=== PATIENT | female | born 1995 | race African-American/Black ===

== ENCOUNTER 2018-01-03 16:24 | Emergency (ER) | payer SELFPAY ==
[2018-01-03 18:58] LABS: BASOPHILS % 0.2 (0.0-1.5); MEAN CORPUSCULAR HEMOGLOBIN 28.2 pg (28.0-34.0); MEAN CORPUSCULAR VOLUME 90.1 fl (80.0-100.0); MONOCYTES % 3.9 % (0.0-11.0); NEUTROPHILS # 5.1 # k/uL (1.4-7.7)
[2018-01-03 19:11] LABS: eGFR (African) > 60; eGFR (Non-African) > 60
--- NOTE | 2018-01-03 19:19 | ED Physician Documentation ---
General Adult - HISTORIAN Historian: patient - HPI Stated Complaint: syncopal episode Chief Complaint: Near Syncope Additional Information: 22-year-old -[place]ish female who well at work today started getting lightheaded and dizzy. On admission to the emergency room patient was lethargic and not responding well. Staff at her place of employment stated they were having a hard time getting the patient to respond. At one time it looked like her eyes rolled back in the head with no specific seizure activity was noted. Patient does have a history of having seizures when she was a child and then again after she had an epidural for a delivery. Patient is not had any specific workup for a seizure disorder done. Patient reported that she did have an yesterday. Patient has been having some depression problems and went to psychiatric hospital for admission for her depression. However no beds were available and patient was sent home. Patient denies that she is suicidal at this time. Patient has been started on Zoloft and stated she started having her symptoms after she took the Zoloft this afternoon. At the patient remained in the ED she did become more awake and alert. Patient denied any chest pain chest pressure palpitations or skip beats. Patient is not had included cardiac arrhythmia. Patient denies any hypoglycemic episodes.. Onset: minutes (45 minutes [employer]) Timing: still present - ROS CONST: no problems. denies: fever, chills MS/SKIN/LYMPH: none - PAST HX Past History: other (seizure) Other History: none Surgeries/Procedures: other (recent ) Immunizations: UTD - SOCIAL HX Drug Use: none - FAMILY HX Family History: No - VITAL SIGNS Vital Signs: Vital Signs Temp Pulse Resp BP Pulse Ox 98.4 F 75 16 130/77 100 01/03/18 18:19 01/03/18 18:19 01/03/18 18:19 01/03/18 18:19 01/03/18 18:19 - REVIEWED ASSESSMENTS Nursing Assessment Reviewed: Yes Vitals Reviewed: Yes <Dharmesh Leiva - Last Filed: 01/03/18 19:15> - HISTORIAN Historian: patient - HPI Timing: still present Further Comments: yes (she reports last Wed she and her friend took a home test and despite her Mireana her test was positive and she took three more tests and they were positive. She states that last week after finding this positive test she went "to a lady in [place] who gave me medicine to drink and I went to sleep and when I woke up she said she took care of my " . In discussion I did confirm she went for an and she felt she had one done that day. She states she did not start to bleed so she went to "another lady in [place] who gave me some pills and I took them yesterday" She is worried due to still not bleeding. She has no cramping. She has nausea. She did start Zoloft yesterday and this started about 1 hour after taking the Zoloft. She states she got to work at 330 pm and felt fine about half an hour after she did feel "weird and light headed" she states she was taken to the "main office at work and I dont remember anything until here") - SOCIAL HX Smoking History: non-smoker - VITAL SIGNS Vital Signs: Vital Signs Temp Pulse Resp BP Pulse Ox 98.4 F 75 16 130/77 100 01/03/18 18:19 01/03/18 18:19 01/03/18 18:19 01/03/18 18:19 01/03/18 18:19 <Dian Chacon - Last Filed: 01/04/18 00:27> - PAST HX Allergies/Adverse Reactions: Allergies Allergy/AdvReac Type Severity Reaction Status Date / Time No Allergy Information Allergy Unverified 01/03/18 18:59 Available Home Medications: Ambulatory Orders Medication Instructions Recorded Sertraline HCl [Zoloft] 50 mg PO DAILY 01/03/18 Progress - Progress Progress: 2043: Nausea is improved DG <Dian Chacon - Last Filed: 01/04/18 00:27> ED Results Lab/Radiology - Lab Results Lab Results: Lab Results 01/03/18 01/03/18 18:50 18:50 WBC 7.20 K/ul K/ul (4.00-12.00) RBC 4.47 M/ul M/ul (3.90-5.20) Hgb 12.6 g/dL g/dL (12.0-16.0) Hct 40.2 % % (34.5-46.5) MCV 90.1 fl fl (80.0-100.0) MCH 28.2 pg pg (28.0-34.0) MCHC 31.3 g/dL g/dL (30.0-36.0) RDW 13.1 % % (11.3-14.3) Plt Count 213 K/mm3 K/mm3 (130-400) Neut % (Auto) 71.0 % % (39.0-79.0) Lymph % (Auto) 21.5 % % (16.0-50.0) [place] % (Auto) 3.9 % % (0.0-11.0) Eos % (Auto) 2.0 % % (0.0-6.8) Baso % (Auto) 0.2 (0.0-1.5) Neut # (Auto) 5.1 # k/uL # k/uL (1.4-7.7) Lymph # (Auto) 1.5 # k/uL # k/uL (0.6-4.0) [place] # (Auto) 0.3 # k/uL # k/uL (0.0-0.9) Eos # (Auto) 0.1 # k/uL # k/uL (0.0-0.6) Baso # (Auto) 0.0 # k/uL # k/uL (0.0-0.5) Reactive Lymphs % 1.4 % % (0.0-5.0) Reactive Lymphs # 0.1 # k/uL # k/uL (0.0-0.8) Sodium 138 mmol/L mmol/L (136-145) Potassium 3.6 mmol/L mmol/L (3.5-5.1) Chloride 107 mmol/L mmol/L (98-107) Carbon Dioxide 21 mmol/L L mmol/L (22-30) BUN 11 mg/dL mg/dL (7-17) Creatinine 0.60 mg/dL mg/dL (0.52-1.04) Estimated Creat Clear 224 Est GFR ( Amer) > 60 (60 - ) Est GFR (Non-Af Amer) > 60 (60 - ) Glucose 92 mg/dL mg/dL (74-106) Calcium 8.8 mg/dL mg/dL (8.4-10.2) Total Bilirubin 0.2 mg/dL mg/dL (0.2-1.3) AST 14 U/L L U/L (15-46) ALT 19 U/L U/L (13-69) Alkaline Phosphatase 117 U/L U/L (38-126) Total Protein 7.7 g/dL g/dL (6.3-8.2) Albumin 4.1 g/dL g/dL (3.5-5.0) - Orders Orders: ED Orders Category Date Time Status Place IV Lock 1T Care 01/03/18 18:[address] BRAIN W/O CONTRAST Stat Exams 01/03/18 Ordered CBC/PLATELET/DIFF Routine Lab 01/03/18 Ordered CBC/PLATELET/DIFF Routine Lab 01/03/18 18:50 Completed CMP Routine Lab 01/03/18 18:50 Completed URINALYSIS Routine Lab 01/03/18 Uncollected EKG WITH COMPARISON Routine Ther 01/03/18 18:49 Ordered <Dharmesh Leiva - Last Filed: 01/03/18 19:15> - Lab Results Lab Results: Lab Results 01/03/18 01/03/18 18:50 18:50 WBC 7.20 K/ul K/ul (4.00-12.00) RBC 4.47 M/ul M/ul (3.90-5.20) Hgb 12.6 g/dL g/dL (12.0-16.0) Hct 40.2 % % (34.5-46.5) MCV 90.1 fl fl (80.0-100.0) MCH 28.2 pg pg (28.0-34.0) MCHC 31.3 g/dL g/dL (30.0-36.0) RDW 13.1 % % (11.3-14.3) Plt Count 213 K/mm3 K/mm3 (130-400) Neut % (Auto) 71.0 % % (39.0-79.0) Lymph % (Auto) 21.5 % % (16.0-50.0) [place] % (Auto) 3.9 % % (0.0-11.0) Eos % (Auto) 2.0 % % (0.0-6.8) Baso % (Auto) 0.2 (0.0-1.5) Neut # (Auto) 5.1 # k/uL # k/uL (1.4-7.7) Lymph # (Auto) 1.5 # k/uL # k/uL (0.6-4.0) [place] # (Auto) 0.3 # k/uL # k/uL (0.0-0.9) Eos # (Auto) 0.1 # k/uL # k/uL (0.0-0.6) Baso # (Auto) 0.0 # k/uL # k/uL (0.0-0.5) Reactive Lymphs % 1.4 % % (0.0-5.0) Reactive Lymphs # 0.1 # k/uL # k/uL (0.0-0.8) Sodium 138 mmol/L mmol/L (136-145) Potassium 3.6 mmol/L mmol/L (3.5-5.1) Chloride 107 mmol/L mmol/L (98-107) Carbon Dioxide 21 mmol/L L mmol/L (22-30) BUN 11 mg/dL mg/dL (7-17) Creatinine 0.60 mg/dL mg/dL (0.52-1.04) Estimated Creat Clear 224 Est GFR ( Amer) > 60 (60 - ) Est GFR (Non-Af Amer) > 60 (60 - ) Glucose 92 mg/dL mg/dL (74-106) Calcium 8.8 mg/dL mg/dL (8.4-10.2) Total Bilirubin 0.2 mg/dL mg/dL (0.2-1.3) AST 14 U/L L U/L (15-46) ALT 19 U/L U/L (13-69) Alkaline Phosphatase 117 U/L U/L (38-126) Total Protein 7.7 g/dL g/dL (6.3-8.2) Albumin 4.1 g/dL g/dL (3.5-5.0) - Radiology Radiology Impressions: CT brain noncontrast Date of study: January 03, 2018. CLINICAL HISTORY: SYNCOPAL EPISODE, NAUSEA, DIZZINESS (Hx) / ITS.REASON syncopal TECHNIQUE: 5 mm contiguous axial images of the brain, noncontrast. FINDINGS: There is no evidence of intracranial mass effect, hemorrhage, or acute hydrocephalus. The lateral ventricles are symmetrical and the 4th ventricle is midline without shift. No acute brain parenchymal changes or extra-axial fluid collections are identified. The posterior fossa contents are within normal limits. The calvarium is intact. The visualized sinuses and mastoid air cells are clear. IMPRESSION: No acute intracranial process. Electronically signed on January 03, 2018 8:36:02 PM CDT by: Viridiana Guzmán - Orders Orders: ED Orders Category Date Time Status Place IV Lock 1T Care 01/03/18 18:[address] BRAIN W/O CONTRAST Stat Exams 01/03/18 Ordered CBC/PLATELET/DIFF Routine Lab 01/03/18 18:50 Completed CMP Routine Lab 01/03/18 18:50 Completed URINALYSIS Routine Lab 01/03/18 Uncollected 0.9 % Sodium Chloride [Normal Saline] 1,000 ml Med 01/03/18 19:26 Active IV Q1H Ondansetron HCl/Pf [Zofran 4 mg/2 ml] Med 01/03/18 19:26 Discontinued 4 mg IVP NOW ONE EKG WITH COMPARISON Routine Ther 01/03/18 18:49 Ordered <Dian Chacon - Last Filed: 01/04/18 00:27> General Adult Physical Exam - PHYSICAL EXAM GENERAL APPEARANCE: no distress EENT: eye inspection normal (PERRLA, EOM nomal, fundi not well visualized due to movement), ENT inspection normal, no signs of dehydration NECK: normal inspection, thyroid normal, supple RESPIRATORY: no resp distress, chest non-tender, breath sounds normal. No: wheezes, rales, rhonchi CVS: reg rate & rhythm, heart sounds normal, equal pulses, no murmur, no gallop ABDOMEN: soft, no organomegaly, normal bowel sounds, no abdominal bruit, no distension, non-tender BACK: normal inspection, no CVA tenderness SKIN: warm/dry, normal color EXTREMITIES: non-tender, no edema NEURO: CN's nml as tested, motor nml. No: oriented X3 (lethargic), cognition normal <Dharmesh Leiva - Last Filed: 01/03/18 19:15> - PHYSICAL EXAM GENERAL APPEARANCE: no distress EENT: eye inspection normal, ENT inspection normal NECK: normal inspection RESPIRATORY: no resp distress CVS: reg rate & rhythm ABDOMEN: soft, normal bowel sounds, no distension, non-tender RECTAL: other (vaginal exam : no blood in the vaginal vault - cervix closed. tolerated well DG) BACK: normal inspection SKIN: warm/dry EXTREMITIES: non-tender NEURO: CN's nml as tested, motor nml, sensation nml, mood/affect nml <Dian Chacon - Last Filed: 01/04/18 00:27> Discharge <Dharmesh Leiva - Last Filed: 01/03/18 19:15> Comments: 1. Zofran 4 mg take 1 by mouth every 8 hours as needed for nausea 2. rest 3. Cut zoloft in half for a few days and take at bedtime 4. If not tolerating Zoloft well notify PCP 5. Follow up with OBGYN in 2-4 days 6. Return to ER for any concerns Decision to Admit: NO Date of Decison to Admit: 01/03/18 Decision Time: 20:47 <Dian Chacon - Last Filed: 01/04/18 00:27> Clincal Impression: Syncope Qualifiers: Syncope type: unspecified Qualified Code(s): R55 - Syncope and collapse Referrals: Primary Doctor,No [Primary Care Provider] - 2 Days Condition: Stable Disposition: 01 HOME, SELF-CARE
[2018-01-03] MEDS ORDERED: ONDANSETRON HCL/PF 4 MG/ 2ML VIAL IVP ONE (19:26)
[2018-01-03] MEDS ORDERED: 0.9 % SODIUM CHLORIDE 1,000 ML IV ONE (19:26)
[2018-01-03 21:21] VITALS: BP 115/60
--- NOTE | 2018-01-04 06:45 | Diagnostic Imaging Report ---
FADI ODEN [facility] [address] [facility] [address] [place], [place]. [address] Report Submission Date: January 03, 2018 8:36:02 PM CDT Patient Study Name: KISHORE CABRALES Date: January 03, 2018 8:04:25 PM CDT Modality Type: CT\SR Gender: F Description: CT BRAIN W/O CONTRAST : 89 Institution: [facility] Physician: FADI ODEN CT brain noncontrast Date of study: January 03, 2018. CLINICAL HISTORY: SYNCOPAL EPISODE, NAUSEA, DIZZINESS (Hx) / ITS.REASON syncopal TECHNIQUE: 5 mm contiguous axial images of the brain, noncontrast. FINDINGS: There is no evidence of intracranial mass effect, hemorrhage, or acute hydrocephalus. The lateral ventricles are symmetrical and the 4th ventricle is midline without shift. No acute brain parenchymal changes or extra-axial fluid collections are identified. The posterior fossa contents are within normal limits. The calvarium is intact. The visualized sinuses and mastoid air cells are clear. IMPRESSION: No acute intracranial process. Electronically signed on January 03, 2018 8:36:02 PM CDT by: Viridiana FOLEY
[2018-01-04 08:14] LABS: APPEARANCE,URINE CLEAR (CLEAR); COLOR,URINE YELLOW (YELLOW); OCCULT BLOOD,URINE 1+ (NEGATIVE); PH URINE 5.5 (5.0 - 8.0)
== END 2018-01-03 20:53 | disposition home or self-care (01) ==
LOC: ED 16:24
DX: R55 Syncope and collapse (principal)
CPT/HCPCS: 70450; 80053; 81002; 85025; 93005; J2405; 96360; 96374; 99284